=== PATIENT | female | born 2000 | race African-American/Black ===

== ENCOUNTER 2021-02-28 02:20 | Emergency (ER) | payer MEDICAID ==
[~2021-02-28] VITALS: Ht 170.2 cm; Wt 64.0 kg
[2021-02-28 02:43] VITALS: BP 117/70
[2021-02-28] MEDS ORDERED: BACITRACIN ZINC OINT UDPKT TOP ONE (06:00)
[2021-02-28] MEDS ORDERED: TETANUS, DIPHTHERIA, PERTUSSIS VAC/PF 0.5ML (>7YR OLD) IM ONE (06:00)
[2021-02-28] MEDS ORDERED: BO1 TP (06:02)
[2021-02-28] MEDS ORDERED: IBUP-2028 MT (06:17)
[2021-02-28] MEDS ORDERED: CEPH500C2 MT (06:17)
== END 2021-02-28 06:43 | disposition home or self-care (01) ==
LOC: ER 02:20
DX: S01.311A Laceration without foreign body of right ear, initial encounter (principal); X58.XXXA Exposure to other specified factors, initial encounter; Y93.89 Activity, other specified; Y92.89 Other specified places as the place of occurrence of the external cause; Y99.8 Other external cause status
CPT/HCPCS: 90471; 90715; 99283